=== PATIENT | female | born 1990 | race Caucasian/White ===

== ENCOUNTER 2018-10-09 00:11 | Emergency (ER) | payer MEDICAID ==
[~2018-10-09] VITALS: Ht 157.5 cm; Wt 59.0 kg
[2018-10-09 05:00] VITALS: BP 110/69
== END 2018-10-09 05:07 | disposition home or self-care (01) ==
LOC: ER 00:42
DX: S90.32XA Contusion of left foot, initial encounter (principal); W20.8XXA Other cause of strike by thrown, projected or falling object, initial encounter; Y93.89 Activity, other specified; Y92.89 Other specified places as the place of occurrence of the external cause; Y99.8 Other external cause status
CPT/HCPCS: 73630; 99283